=== PATIENT | female | born 2000 | race Caucasian/White ===

== ENCOUNTER 2023-11-13 08:20 | Emergency (ER) | payer MEDICAID ==
[~2023-11-13] VITALS: Ht 160 cm; Wt 65.4 kg
[2023-11-13 08:59] LABS: BILIRUBIN,URINE NEGATIVE (Neg); CLARITY,URINE CLEAR (Clear); COLOR,URINE STRAW (Yellow); GLUCOSE, URINE NEGATIVE (Neg); KETONES,URINE NEGATIVE (Neg); LEUKOCYTE ESTERASE ,URINE NEGATIVE (Neg); NITRITES, URINE NEGATIVE (Neg); OCCULT BLOOD,URINE NEGATIVE (Neg); PROTEIN,URINE NEGATIVE (Neg); URINE HCG NEGATIVE (NEG); UROBILINOGEN,URINE 0.2 E.U/dL (0.2-1.0)
[2023-11-13 09:10] LABS: UA COLLECTION TYPE NON-SPECIFIED
[2023-11-13] MEDS: fluconazole 150mg tablet PO ONE (09:18)
[2023-11-13 09:57] VITALS: BP 120/86; PULSE 71; RESP 16; TEMP 98.5; O2SAT 98
== END 2023-11-13 09:58 | disposition home or self-care (01) ==
LOC: ER 08:21
DX: B37.31 Acute candidiasis of vulva and vagina (principal)
CPT/HCPCS: 81003; 81025; 99283

== ENCOUNTER 2024-12-13 12:44 | Emergency (ER) | payer MEDICAID ==
[~2024-12-13] VITALS: Ht 162.6 cm; Wt 60.6 kg
[2024-12-13 12:54] VITALS: BP 104/76; PULSE 75; RESP 12; TEMP 97.8; O2SAT 99
--- NOTE | 2024-12-13 15:08 | Physician Documentation ---
History of Present Illness General Chief Complaint: See Chief Complaint Stated Complaint: MED REACTION Time Seen by MD: 14:38 History of Present Illness Initial Comments Otherwise healthy 24-year-old female who presents to the emergency department with complaint of left eye droop that resolved. Reports he has been taking Flexeril for lower back spasms. Does not have a clear understanding of exactly what type of lower back etiology she has. Denies facial pain, other facial droop, rash and/or otalgia. The left eye facial droop has since resolved. She has had no prior history of the same. There was no scanning speech. Medication Reconciliation Allergies: Coded Allergies: No Known Allergies (Unverified , 12/13/24) Review of Systems All Other Systems at this time: Reviewed and Negative Physical Exam Physical Exam Vital Signs: Temperature: 97.8, Source: Temporal, Heart Rate: 75, Respiratory Rate: 12, BP: 104/76, Pulse Oximetry: 99, Weight: 60.600 Oxygen Flow Rate: 0 General Appearance: alert, WD/WN Head: normal inspection Face: normal inspection Pupils/EOM/Fundus: PERRLA Ear: auricle normal Nose: normal inspection Oropharynx: normal inspection Neck: non-tender Respiratory: lungs clear Cardiovascular: normal peripheral pulses Extremities: normal range of motion Neurologic: oriented x4 Motor / Sensory: no motor deficit, no sensory deficit Psychiatric: normal mood/affect Skin: normal color Progress Results/Orders Results/Orders Orders - NEPTALI MELÉNDEZ [facility] Lumbar Spine Limited (12/13/24 ) Completed Orders - NEPTALI MELÉNDEZ [facility] Lumbar Spine Limited (12/13/24 ) Vital Signs 12/13/24 12:54 Temp 97.8 Pulse 75 Resp 12 B/P (MAP) 104/76 Pulse Ox 99 O2 Flow Rate 0 Medical Decision Making Differential Diagnosis Examination & history is consistent with a transient episode. Lumbar x-ray reassuring for no spondylolysis spondylolisthesis. Patient advised to discontinue Flexeril and follow up with the primary care physician. Differentials include tic douloureux, temporal arteritis, early signs of zoster and/or Eastman's palsy. She safe for stable discharge and follow up. Departure Disposition: HOME / SELF CARE / HOMELESS Impression: Primary Impression: Lumbar back pain Additional Impression: Muscle spasm Condition: Stable Additional Instructions: Your x-ray imaging today is reassuring. Please make follow up appointment with the primary care physician. Please discontinue Flexeril and begin baclofen as directed. Please return to the emergency department for facial pain, rash or facial muscle palsy. Thank you for visiting emergency department [facility]. Referrals: NO PRIMARY CARE PROVIDER (PCP) Education Educated: Patient Educated regarding: diagnosis, need for follow up Signature Scribe Signature: . Attestation: . NEPTALI MELÉNDEZ PAC Dec 13, 2024 15:08
--- NOTE | 2024-12-13 15:17 | RADIOLOGY REPORT ---
DI LUMBAR SPINE LIMITED, HISTORY: LBP COMPARISON: None TECHNICAL DATA: Frontal and lateral views were obtained of the lumbar spine. FINDINGS: There are 5 lumbar type vertebral bodies. Lumbar curvature is within normal limits. There is no spondylolisthesis. Vertebral body heights are maintained. Disk heights are narrow at L5-S1. The facet joints appear normal. The sacroiliac joints are symmetric. Paraspinal soft tissues are within normal limits. IMPRESSION: No acute fracture or dislocation of the lumbar spine.
== END 2024-12-13 15:45 | disposition home or self-care (01) ==
LOC: ER 12:44
DX: M62.830 Muscle spasm of back (principal); M54.50 Low back pain, unspecified
CPT/HCPCS: 72100; 99283